=== PATIENT | male | born 1980 | race Caucasian/White ===

== ENCOUNTER 2021-06-11 13:45 | Outpatient (REF) | payer OTHER, SELFPAY ==
--- NOTE | ~2021-06-11 | XR_ITS ---
EXAMINATION: XR CHEST CLINICAL INFORMATION: COVID 19 COMPARISON: 11/20/2007 TECHNIQUE: 2 views of the chest were obtained. FINDINGS: Lungs are clear. No focal consolidation or mass. Normal pulmonary vascularity. No pleural effusion or pneumothorax. Normal heart size. No acute osseous abnormality. XR/XR chest 2V IMPRESSION: No acute pulmonary disease.
== END 2021-06-11 13:46 | disposition home or self-care (01) ==
LOC: HO.XRAY 13:45
PROVIDERS: PCP Internal Medicine; Visit Provider Internal Medicine
DX: U07.1 COVID-19 (principal)
CPT/HCPCS: 71046

== ENCOUNTER → 2021-11-08 11:41 | Outpatient (BNVA) | payer OTHER, SELFPAY | PROVIDERS: PCP Internal Medicine; Visit Provider Internal Medicine | DX: S61.210A Laceration without foreign body of right index finger without damage to nail, initial encounter (principal); W26.8XXA Contact with other sharp object(s), not elsewhere classified, initial encounter; Z23 Encounter for immunization | CPT/HCPCS: 12001; 90715; 99202 ==

== ENCOUNTER → 2021-11-10 11:07 | Outpatient (BNVA) | payer OTHER, SELFPAY | PROVIDERS: PCP Internal Medicine; Visit Provider Internal Medicine | DX: S61.210A Laceration without foreign body of right index finger without damage to nail, initial encounter (principal); W26.8XXA Contact with other sharp object(s), not elsewhere classified, initial encounter | CPT/HCPCS: 99213 ==

== ENCOUNTER → 2021-11-16 11:10 | Outpatient (BNVA) | payer OTHER, SELFPAY | PROVIDERS: PCP Internal Medicine; Visit Provider Internal Medicine | DX: S61.210A Laceration without foreign body of right index finger without damage to nail, initial encounter (principal); W26.9XXA Contact with unspecified sharp object(s), initial encounter; Z48.02 Encounter for removal of sutures | CPT/HCPCS: 99212; 99213 ==

== ENCOUNTER 2023-12-14 13:30 | Outpatient (REF) | payer OTHER, SELFPAY ==
[2023-12-14 13:33] LABS: MANUAL DIFF FLAG NO
[2023-12-14 13:43] LABS: Basophils Percent Auto 0.5 % (0-2); Eosinophils Percent Auto 0.6 % (0-4); Hematocrit 44.6 % (42.0-52.0); Hemoglobin 15.7 g/dl (14.0-18.0); Imm Gran Abs Auto 0.02 X10*3/uL (0.00-0.03); Imm Gran Pct Auto 0.3 % (0.0-0.4); Lymphocytes Absolute Auto 1.4 X10*3/uL (1.2-4.9); Lymphocytes Percent Auto 20.9 % (20-40); Mean Corpuscular HGB Conc 35.2 g/dl (31.0-36.0); Mean Corpuscular Hemoglobin 30.5 pg (27.0-33.0); Mean Corpuscular Volume 86.6 fL (80.0-98.0); Mean Platelet Volume 11.3 fL (9.4-12.4); Monocytes Absolute Auto 0.5 X10*3/uL (0.1-1.2); Monocytes Percent Auto 7.1 % (2-11); Neutrophils Absolute Auto 4.6 x10*3/uL (2.0-8.3); Neutrophils Percent Auto 70.6 % (45-73); Platelet Count 284 X10*3/uL (160-400); Red Blood Count 5.15 X10*6/uL (4.60-5.80); Red Cell Distribution Width 14.4 % (11.0-16.0); White Blood Count 6.5 X10*3/uL (4.8-10.8)
[2023-12-14 14:01] LABS: Alanine Aminotransferase 79 U/L (0-40); Albumin Level 4.6 g/dL (3.5-5.0); Alkaline Phosphatase 91 U/L (39-117); Anion Gap 14 (12-20); Aspartate Amino Transferase 40 U/L (5-37); Bilirubin Total 0.7 mg/dL (0.0-1.0); Blood Urea Nitrogen 14 mg/dL (9-16); Calcium 9.6 mg/dL (8.4-10.2); Carbon Dioxide 25 mmol/L (22-29); Chloride 105 mmol/L (96-108); Estimated Glomerular Filt Rate > 60; Glucose Fasting 100 mg/dL (60-99); Potassium 4.3 mmol/L (3.3-5.1); Sodium 140 mmol/L (135-145); Total Protein 7.8 g/dL (6.5-8.0); Uric Acid 6.6 mg/dL (3.4-7.0)
== END 2023-12-14 13:31 | disposition home or self-care (01) ==
LOC: HO.LNP 13:30
PROVIDERS: Visit Provider Internal Medicine
DX: N20.0 Calculus of kidney (principal)
CPT/HCPCS: 80053; 84550; 85025

== ENCOUNTER 2024-04-19 10:39 | Outpatient (REF) | payer OTHER, SELFPAY ==
[2024-04-19 10:42] LABS: MANUAL DIFF FLAG NO
[2024-04-19 10:45] LABS: Basophils Percent Auto 0.3 % (0-2); Eosinophils Percent Auto 0.6 % (0-4); Hematocrit 45.3 % (42.0-52.0); Hemoglobin 15.7 g/dl (14.0-18.0); Imm Gran Abs Auto 0.02 X10*3/uL (0.00-0.03); Imm Gran Pct Auto 0.3 % (0.0-0.4); Lymphocytes Absolute Auto 1.4 X10*3/uL (1.2-4.9); Lymphocytes Percent Auto 21.7 % (20-40); Mean Corpuscular HGB Conc 34.7 g/dl (31.0-36.0); Mean Corpuscular Hemoglobin 31.5 pg (27.0-33.0); Mean Corpuscular Volume 90.8 fL (80.0-98.0); Mean Platelet Volume 11.2 fL (9.4-12.4); Monocytes Absolute Auto 0.5 X10*3/uL (0.1-1.2); Monocytes Percent Auto 8.1 % (2-11); Neutrophils Absolute Auto 4.4 x10*3/uL (2.0-8.3); Platelet Count 275 X10*3/uL (160-400); Red Blood Count 4.99 X10*6/uL (4.60-5.80); White Blood Count 6.3 X10*3/uL (4.8-10.8)
[2024-04-19 10:47] LABS: Appearance Urine Clear; Color Urine Dark Yellow; Glucose Urine UA Negative (Negative); Leukocyte Esterase Urine Trace (Negative); Nitrite Urine Negative (Negative); PH 6.5 (5.0-9.0); Specific Gravity - Urine >= 1.030 (1.005-1.025); UMIC TRIGGER UACC YES; Urine Blood Negative (Negative); Urine Ketones Trace mg/dL (Negative); Urine Protein Trace mg/dL (Neg-Trace)
[2024-04-19 10:50] LABS: Bacteria Urine None Seen (None Seen); Hyaline Casts Urine 0-2 /LPF (0-2); RBC Urine 0-2 /HPF (0-2); Squamous Epithelial Cell Urine 0-2 /HPF (0-2); WBC Urine 0-5 /HPF (0-5)
[2024-04-19 21:25] LABS: Alanine Aminotransferase 67 U/L (0-40); Albumin Level 4.6 g/dL (3.5-5.0); Alkaline Phosphatase 77 U/L (39-117); Anion Gap 17 (12-20); Aspartate Amino Transferase 41 U/L (5-37); Blood Urea Nitrogen 17 mg/dL (9-16); Calcium 9.7 mg/dL (8.4-10.2); Carbon Dioxide 23 mmol/L (22-29); Chloride 103 mmol/L (96-108); Cholesterol 162 mg/dL (<200); Estimated Glomerular Filt Rate > 60; Glucose Fasting 99 mg/dL (60-99); HDL Cholesterol 37 mg/dL (>40); LDL Cholesterol Calculated 68 mg/dL (<100); Sodium 139 mmol/L (135-145); Total Protein 7.5 g/dL (6.5-8.0); Triglycerides 288 mg/dL (<150)
[2024-04-20 02:01] LABS: PSA,Total (Free>4and<10) 0.22 ng/mL (0.00-4.00)
== END 2024-04-19 10:40 | disposition home or self-care (01) ==
LOC: HO.LNP 10:39
PROVIDERS: Visit Provider Internal Medicine
DX: Z00.00 Encounter for general adult medical examination without abnormal findings (principal); E78.1 Pure hyperglyceridemia; I10 Essential (primary) hypertension; Z12.5 Encounter for screening for malignant neoplasm of prostate
CPT/HCPCS: 80053; 80061; 81001; 84153; 85025

== ENCOUNTER 2025-02-21 11:46 | Outpatient (REF) | payer BC, SELFPAY ==
--- OUTSIDE RECORDS SUMMARY | 2025-02-21 11:50 | XMS_ITS ---
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 Name Role Phone Luca Lee Primary Care Provider REASON FOR VISIT 6 week Encounters Encounter Location Date Provider Diagnosis Luca Lee MD [address] [place] [address] [place] [phone] 12/09/2024 Luca Lee Plan Of Treatment Next Appt Details Provider Name:Luca Mcwilliams ier, 04/22/2025 08:00:00 AM, [address] [place] [address], [address], [phone], Provider Name:Luca Mcwilliams ier, 04/29/2025 02:30:00 PM, [address] [place] [address], [place] [address], [place], [place], [phone], Progress Notes * Trevon MIGUEL MDOB: [birth year] (44 yo M)Acc No.[id number]:12/09/2024 Progress Notes Patient:?Trevon MIGUEL Provider:?Luca Lee MD :1980???Age:44 Y???Sex:Male Irving e:12/09/2024 Address:[address] [place], [place] Subjective: * Chief Complaints: * ???1. 6 week. * Medical History:? Objective: * Vitals:? Assessment: Plan: * Treatment: * * The named appointment provid er may or may not be the originator of this progress note, and it is not deemed complete until electronically signed by the appointment provider. Sign off status: Pending * Provider:?Luca Lee MD Date:?0 12/09/2024 Generated for Jenny arce/Kel/Valeria on:?02/21/2025 11:49 AM EDT
[2025-02-21 12:38] LABS: Alanine Aminotransferase 82 U/L (0-40); Albumin Level 4.7 g/dL (3.5-5.0); Alkaline Phosphatase 88 U/L (39-117); Anion Gap 12 (12-20); Aspartate Amino Transferase 49 U/L (5-37); Bilirubin Total 0.7 mg/dL (0.0-1.0); Blood Urea Nitrogen 14 mg/dL (9-16); Calcium 9.6 mg/dL (8.4-10.2); Carbon Dioxide 28 mmol/L (22-29); Chloride 105 mmol/L (96-108); Estimated Glomerular Filt Rate > 60; Glucose Fasting 97 mg/dL (60-99); Potassium 4.5 mmol/L (3.3-5.1); Sodium 140 mmol/L (135-145); Total Protein 7.5 g/dL (6.5-8.0)
== END 2025-02-21 11:47 | disposition home or self-care (01) ==
LOC: HO.LNP 11:46
PROVIDERS: Visit Provider Internal Medicine
DX: R25.2 Cramp and spasm (principal)
CPT/HCPCS: 80053

== ENCOUNTER 2025-04-25 10:11 | Outpatient (REF) | payer BC, SELFPAY ==
[2025-04-25 10:18] LABS: MANUAL DIFF FLAG NO
[2025-04-25 10:23] LABS: Hematocrit 44.0 % (42.0-52.0); Hemoglobin 15.4 g/dl (14.0-18.0); Imm Gran Abs Auto 0.02 X10*3/uL (0.00-0.03); Imm Gran Pct Auto 0.3 % (0.0-0.4); Lymphocytes Absolute Auto 1.5 X10*3/uL (1.2-4.9); Mean Corpuscular HGB Conc 35.0 g/dl (31.0-36.0); Mean Corpuscular Hemoglobin 31.8 pg (27.0-33.0); Mean Corpuscular Volume 90.9 fL (80.0-98.0); NRBC Abs Auto 0.000 X10*3/uL (0.0-0.012); NRBC Pct Auto 0.0 /100WBC (0.0-0.2); Platelet Count 281 X10*3/uL (160-400); Red Blood Count 4.84 X10*6/uL (4.60-5.80); White Blood Count 6.4 X10*3/uL (4.8-10.8)
--- OUTSIDE RECORDS SUMMARY | 2025-04-25 10:29 | XMS_ITS | Patient Health Record ---
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 Panel Fa st Reviewed date:02/21/2025 01:28:58 PM Interpretation: Performing Lab:[facility], [address] [place] [id number] Notes/Report: Sodium 140 135-145 mmol/L Potassium 4.5 3.3-5.1 mmol/L Chloride 105 96-108 mmol/L Carbon Dioxide 28 22-29 mmol/L Anion Gap 12 12-20 Blood Urea Nitrogen 14 9-16 mg/dL Creatinine 0.76 0.5-1.4 mg/dL Estimated Glomerular Filt Rate > 60 Chronic Kidney Disease: Estimated GFR < 60 mL/min/1.73m2 Severe Kidney Disease: Estimated GFR < 15 mL/min/1.73m2 Glucose Fasting 97 60-99 mg/dL Calcium 9.6 8.4-10.2 mg/dL Bilirubin Total 0.7 0.0-1.0 mg/dL Aspartate Amino Transferase 49 5-37 U/L Alanine Aminotransferase 82 0-40 U/L Total Protein 7.5 6.5-8.0 g/dL Albumin Level 4.7 3.5-5.0 g/dL Alkaline Phosphatase 88 39-117 U/L Complete Blood Count Auto Di ff (Not yet reviewed by provider) Interpretation: Performing Lab:[facility], [address] [place] [address] Notes/Report: White Blood Count 6.4 4.8-10.8 X10*3/uL Red Blood Count 4.84 4.60-5.80 X10*6/uL Hemoglobin 15.4 14.0-18.0 g/dl Hematocrit 44.0 42.0-52.0 % Mean Corpuscular Volume 90.9 80.0-98.0 fL Mean Corpuscular Hemoglobin 31.8 27.0-33.0 pg Mean Corpuscular HGB Conc 35.0 31.0-36.0 g/dl Red Cell Distribution Width 14.5 11.0-16.0 % Platelet Count 281 160-400 X10*3/uL Mean Platelet Volume 11.2 9.4-12.4 fL Neutrophils Percent Auto 68.0 45-73 % Imm Gran Pct Auto 0.3 0.0-0.4 % Lymphocytes Percent Auto 23.1 20-40 % Monocytes Percent Auto 7.5 2-11 % Eosinophils Percent Auto 0.8 0-4 % Basophils Percent Auto 0.3 0-2 % NRBC Pct Auto 0.0 0.0-0.2 /100WBC Neutrophils Absolute Auto 4.4 2.0-8.3 x10*3/u L Imm Gran Abs Auto 0.02 0.00-0.03 X10*3/uL Lymphocytes Absolute Auto 1.5 1.2-4.9 X10*3/u L Monocytes Absolute Auto 0.5 0.1-1.2 X10*3/uL Eosinophils Absolute Auto 0.1 0.0-0.4 X10*3/u L Basophils Absolute Auto 0.0 0.0-0.2 X10*3/uL NRBC Abs Auto 0.000 0.0-0.012 X10*3/uL Reason For Referral Reason ACUTE ABCESS Diagnosis 1 Acute abscess (L02.9 1) Referral Organization Luca Lee MD Referring Provider First Name Luca Referring Provider Last Name Jesus Referring Provider Speciality Internal M edicine Referred Provider Joseph Galdamez Referred Provider Specialty Surgery General Notes A, Gazda-Marmolejo, Pat jus Sood 11/21/2024 03:46:05 PM >APPT SCHEDULED FOR 11/27/24 AT [address] GALDAMEZ [facility]. PATIENT NOTIFIED ON VOICE MAIL AND PER THE MAIL, Gina Hernandezjus Sood 11/22/2024 08:14:22 AM >REFERRAL FAXED TO [facility] EldaMilanMarmolejo Dede Sood 12/05/2024 01:47:35 PM >PER [facility], KAROLINE WAS A NO SHOW. REFERRAL CLOSED Referral Priority Routine Referral Appointment Date 11/27/2024 Reason ROOPA Diagnosis 1 ROOPA (obstructive sle ep apnea) (G47.33) Referral Organization Luca Lee MD Referring Provider First Name Luca Referring Provider Last Name Jesus Referring Provider Speciality Internal M edicine Referred Provider Sleep Medicine, Serv ices Referred Provider Specialty Sleep Medici ne General Notes Gina Hernandezjus Sood 11/21/2024 03:48:30 PM >REFERRAL FAXED TO [facility], David Dede Sood 12/16/2024 02:24:45 PM >I CALLED [facility] THEY HAVE CALLED KAROLINE AND SENT LETTER BUT HE HAS NOT RESPONDED. I LEFT HIM A MESSAGE TODAY WELL, Gina Hernandezjus Sood 12/27/2024 10:47:53 AM >[facility] HAS NOT HEARD BACK FROM KAROLINE, NOR HAVE I SO I AM CLOSING THE REFERRAL OUT Referral Priority Routine Medications Medication SIG (Take, Route, Frequency, Duration) Notes Start Date End Date Status Valsartan-hydroCHLOROthiaz ruben 80-12.5 MG TAKE 1 TABLET BY MOUTH EVERY DAY FOR 30 DAYS Orally Once a day for 90 days Active Albuterol Sulfate HFA 108 (90 Base) MCG/ACT 1 puff as needed Inhalation every 4 hrs for 30 days 02/18/2025 Active Immunizations Vaccine Route Administration Date Status Comme nts Flu Vaccine IM Intramuscular 07/07/2013 Administered [facility] Flu Vaccine IM Intramuscular 08/22/2014 Administered [facility] Fluarix Quadrivalent IM Intramuscular 07/31/2017 Administe red Fluarix Quadrivalent Unknown 06/27/2016 Refused Social History Tobacco Use: Social History Observation Description Date Details (start date - stop date) Former Smoker NA - NA Tobacco Use/Smoking Question Answer Notes Patient is a former smoker How long has it been since y ou last smoked? 1-5 years Additional Findings: Tobacco Non-User Fo rmer smoker, currently using no form of tobacco Alcohol Screen Question Answer Notes Did you have a drink contain ing alcohol in the past year? Yes How often did you have a dri nk containing alcohol in the past year? 2 to 4 times a month (2 points) How many drinks did you have on a typical day when you were drinking in the past year? 3 or 4 drinks (1 point) How often did you have 6 or more drinks on one occasion in the past year? Never (0 point) Points 3 Interpretation Negative Problems Problem Type SNOMED Code ICD Code Onset Dates Problem Status W/U Status Risk Notes Problem 59317662 Kidney stone (N20.0) Active confirmed Problem 01736138 Essential hypert ension (I10) Active confirmed Problem 99290342 Labile hypertens ion (I10) Active confirmed Problem 96178817 Sciatica of left side (M54.32) Active confirmed Problem 04073791 Obstructive slee p apnea (G47.33) Active confirmed Problem 225706161 Hypertriglycerid emia (E78.1) Active confirmed Problem ROOPA (obstructive sleep apnea) (G47.33) Active confirmed Vital Signs Blood pressure diastolic 84 mm Hg 02/18/2025 andrew ght is down 6 pounds since 11-21-24 Height 67 in 02/18/2025 weight is down 6 pounds since 11-21-24 Blood pressure systolic 122 mm Hg 02/18/2025 weig ht is down 6 pounds since 11-21-24 Weight 223 lbs 02/18/2025 weight is down 6 pounds since 11-21-24 BMI 34.92 kg/m2 02/18/2025 weight is down 6 pounds since 11-21-24 Encounters Encounter Location Date Provider Diagnosis uLca Lee MD [address] [place] [phone] 04/26/2024 Luca Lee Essential hypertensi on I10 ; Annual physical exam Z00.00 ; Elevated liver enzymes R74.8 ; Colon cancer screening Z12.11 and Depression screening Z13.31 Luca Lee MD [address] [place] [phone] 04/25/2025 Luca Lee Blood tests for rout ine general physical examination Z00.00 ; Labile hypertension I10 and Hypertriglyceridemia E78.1 Luca Lee MD [address] [place] [phone] 02/21/2025 Luca Lee Cramp and spasm R25. 2 Luca Lee MD [address] [place] [phone] 11/21/2024 Luca Lee Labile hypertension I10 ; Obstructive sleep apnea G47.33 and Acute abscess L02.91 Luca Lee MD [address] [place] [phone] 02/18/2025 Luca Lee Muscle cramp R25.2 a nd Wheezing R06.2 Assessments Encounter Date Diagnosis (ICD Code) Assessment Notes Treatment Notes Treatment Clinical Notes Section Notes 04/26/2024 Essential hypertensi on (ICD-10 - I10) doing well on meds, will continue current regiment 04/26/2024 Annual physical exam (ICD-10 - Z00.00) labs reviewed and discussed with patient 04/25/2025 Blood tests for rout ine general physical examination (ICD-10 - Z00.00) 02/21/2025 Cramp and spasm (ICD -10 - R25.2) 11/21/2024 Labile hypertension (ICD-10 - I10) 11/21/2024 Obstructive sleep ap david (ICD-10 - G47.33) schedule sleep study 02/18/2025 Muscle cramp (ICD-10 - R25.2) pending labs 02/18/2025 Wheezing (ICD-10 - R06.2) patient verbalized understanding of medication and directions for use 04/26/2024 Elevated liver enzym es (ICD-10 - R74.8) stable, will continue to monitor 04/25/2025 Labile hypertension (ICD-10 - I10) 11/21/2024 Acute abscess (ICD-1 0 - L02.91) referral to dr GALDAMEZ/ APPT SCHEDULED WITH [facility] FOR 11/27/24 @ 830AM, PATIENT INFORMED 04/26/2024 Colon cancer screeni ng (ICD-10 - Z12.11) guaiac negative 04/25/2025 Hypertriglyceridemia (ICD-10 - E78.1) 04/26/2024 Depression screening (ICD-10 - Z13.31) negative screening 11/21/2024 Other REFERRAL TO FAXED TO [facility]. THEY WILL CONTACT PATIENT Plan Of Treatment Pending Test Test Name Order Date Complete Blood Count Auto Diff 5 Comprehensive Mason. Panel Fast 5 Comprehensive Mason. Panel Fast 5 Lipid Panel 04/25/2025 PSA,Total (Free>4and<10) 04/25/2025 CT abdomen pelvis wo con 12/14/2023 UA ClnCatch+Micro w/rflx Cult 04/25/2025 Future Test Test Name Order Date XR CHEST 2 VIEW PA & LAT 06/07/2021 Next Appt Details Provider Name:Luca okeefe, 04/29/2025 02:30:00 PM, [address] [place] [address], [address], [place], [place], [phone], Provider Name:Luca okeefe, 05/23/2025 08:15:00 AM, [address] [place] [address], [address], [place], [place], [phone], Insurance Providers Payer Name Payer Address Payer Phone Subscriber Number Group Number Insured Name Patient Relationship to Insured Coverage Start Date Coverage End Date [employer] [address] [place], [place] [phone] [phone] [id number] Karoline Miguel Self - patient is the insured 5
[2025-04-25 10:45] LABS: Alanine Aminotransferase 73 U/L (0-40); Albumin Level 4.7 g/dL (3.5-5.0); Alkaline Phosphatase 91 U/L (39-117); Anion Gap 14 (12-20); Aspartate Amino Transferase 44 U/L (5-37); Blood Urea Nitrogen 16 mg/dL (9-16); Calcium 9.4 mg/dL (8.4-10.2); Carbon Dioxide 26 mmol/L (22-29); Chloride 103 mmol/L (96-108); Cholesterol 157 mg/dL (<200); Estimated Glomerular Filt Rate > 60; HDL Cholesterol 38 mg/dL (>40); Potassium 4.1 mmol/L (3.3-5.1); Sodium 139 mmol/L (135-145); Total Protein 7.5 g/dL (6.5-8.0); Triglycerides 251 mg/dL (<150)
[2025-04-25 10:53] LABS: Appearance Urine Clear; Glucose Urine UA Negative (Negative); PH 5.5 (5.0-9.0); Specific Gravity - Urine 1.025 (1.005-1.025)
[2025-04-25 11:08] LABS: PSA,Total (Free>4and<10) 0.31 ng/mL (0.00-4.00)
== END 2025-04-25 10:12 | disposition home or self-care (01) ==
LOC: HO.LNP 10:11
PROVIDERS: Visit Provider Internal Medicine
DX: Z00.00 Encounter for general adult medical examination without abnormal findings (principal); Z12.5 Encounter for screening for malignant neoplasm of prostate; I10 Essential (primary) hypertension; E78.1 Pure hyperglyceridemia
CPT/HCPCS: 80053; 80061; 81001; 84153; 85025